=== PATIENT | male | born 1965 | race Two or more races ===

== ENCOUNTER 2022-02-26 13:34 | Emergency (ER) | payer OTHER ==
[~2022-02-26] VITALS: Ht 182.9 cm; Wt 112.0 kg
== END 2022-02-26 22:03 | disposition home or self-care (01) ==
LOC: ER 13:34
DX: M25.532 Pain in left wrist (principal); I10 Essential (primary) hypertension; M25.562 Pain in left knee; M25.561 Pain in right knee; E78.00 Pure hypercholesterolemia, unspecified; E11.9 Type 2 diabetes mellitus without complications